=== PATIENT | female | born 1970 | race Caucasian/White ===

== ENCOUNTER 2019-10-24 15:17 | Emergency (ER) | payer MEDICAID ==
[~2019-10-24] VITALS: Ht 152.4 cm; Wt 78.5 kg
[2019-10-24 15:25] VITALS: BP 152/79
--- NOTE | 2019-10-24 15:34 | NUR ---
PT AMB TO BED 3 WITH STEADY GAIT
--- NOTE | 2019-10-24 15:59 | NUR ---
49 Y/O F C/O RIGHT FLANK PAIN 10/ THAT RADIATES TO THE BACK X1 DAY. PT DENIES INJURY TO THE AREA. NO N/V FEVER. UPPER RT QUADRANT PAIN TO TOUCH. PT POSITIONED FOR COMFORT, VS STABLE. BED LOWERED, SIDE RAIL X1 IN PLACE. PT AMBULATED WITHOUT DIFFICULTY TO PROVIDE URINE SAMPLE. LAKESHA
--- NOTE | 2019-10-24 16:03 | NUR ---
EMT AT BEDSIDE PERFORMING EKG.
--- NOTE | 2019-10-24 17:11 | NUR ---
X-RAY TECH AT BEDSIDE PERFORMING ORDERED TEST.
[2019-10-24 17:56] LABS: BASOPHILS % (AUTO) 0.3 % (0.0-2.0); EOSINOPHILS # (AUTO) 0.2 K/uL (0-0.4); HEMATOCRIT 38.3 % (36-48); HEMOGLOBIN 12.6 g/dL (12.0-16.0); LYMPHOCYTES # (AUTO) 2.2 K/uL (2.5-16.5); LYMPHOCYTES % (AUTO) 29.8 % (20.5-51.1); MEAN CORPUSCULAR HEMOGLOBIN 29 pg (27-31); MEAN CORPUSCULAR HGB CONC 33 g/dL (33-37); MEAN CORPUSCULAR VOLUME 86.9 fL (80-94); MONOCYTES # (AUTO) 0.4 K/uL (0.8-1.0); MONOCYTES % (AUTO) 5.6 % (1.7-9.3); NEUTROPHILS # (AUTO) 4.5 K/uL (1.8-7.7); NEUTROPHILS % (AUTO) 61.3 % (42.2-75.2); PLATELET COUNT (AUTO) 299 K/uL (140-450); RED CELL DISTRIBUTION WIDTH 13.1 % (11.6-13.7); WHITE BLOOD COUNT (AUTO) 7.3 K/uL (4.8-10.8)
--- NOTE | 2019-10-24 18:23 | NUR ---
PT RESTING COMFORTABLY, VS STABLE, OXYGEN LEVEL 99% ON NC 2L. DAUGHTER AT BEDSIDE. INFORMED PT WAITING FOR TEST RESULTS TO RETURN.
[2019-10-24 18:39] LABS: PROTHROMBIN TIME 9.5 secs (10.8-13.4)
[2019-10-24 18:42] LABS: ALBUMIN 3.5 g/dL (3.4-5.0); ANION GAP 13.2 (8-16); CARBON DIOXIDE 28.5 mmol/L (21-32); CREATININE 0.7 mg/dL (0.6-1.3); POTASSIUM 3.7 mmol/L (3.5-5.1); TOTAL BILIRUBIN 0.2 mg/dL (0.0-1.0)
[2019-10-24 18:48] LABS: D-DIMER < 100 ng/ml (0-400)
--- NOTE | 2019-10-24 19:22 | NUR ---
REPORT GIVE TO ALMA RUTLEDGE FOR CHANGE OF SHIFT.
--- NOTE | 2019-10-24 19:23 | NUR ---
RECEIVED REPORT FROM ALMA GAGE. [facility] AT THIS TIME.
--- NOTE | 2019-10-24 20:05 | NUR ---
PT SEATED UPRIGHT IN BED. O2 SAT AT 100% ON 2L NC. RESPIRATIONS EVEN AND UNLABORED. WILL CONTINUE TO MONITOR.
[2019-10-24 20:28] VITALS: BP 160/86
--- NOTE | 2019-10-24 21:10 | NUR ---
DR. NEAL AT BEDSIDE EXPLAINING TEST RESULTS
--- NOTE | 2019-10-24 21:25 | NUR ---
Patient discharged with v/s stable. Written and verbal after care instructions given and explained. Patient alert, oriented and verbalized understanding of instructions. Ambulatory with steady gait. All questions addressed prior to discharge. ID band removed. Patient advised to follow up with PMD. Rx of NAPROSYN AND LIDODERM given. Patient educated on indication of medication including possible reaction and side effects. Opportunity to ask questions provided and answered.
== END 2019-10-24 21:25 | disposition home or self-care (01) ==
LOC: MED 15:17
DX: R07.81 Pleurodynia (principal); R05 Cough; F17.200 Nicotine dependence, unspecified, uncomplicated; R11.2 Nausea with vomiting, unspecified; Z71.6 Tobacco abuse counseling
CPT/HCPCS: 36415; 71045; 71275; 80053; 81002; 81025; 82550; 83880; 84484; 85025; 85379; 85610; 85730; 86886; 86900; 86901; 93005; 99284; Q0092; Q9967

== ENCOUNTER 2019-11-12 15:46 | Emergency (ER) | payer MEDICAID ==
[~2019-11-12] VITALS: Ht 152.4 cm; Wt 73.9 kg
[2019-11-12 15:52] VITALS: BP 126/88
[2019-11-12] MEDS ORDERED: ALBUTEROL SULFATE/IPRATROPIU 3 ML SOL IH ONE ×2 (16:25→17:55)
[2019-11-12 18:11] VITALS: BP 132/85
== END 2019-11-12 18:12 | disposition home or self-care (01) ==
LOC: MED 15:46
DX: B34.9 Viral infection, unspecified (principal); I10 Essential (primary) hypertension; F17.210 Nicotine dependence, cigarettes, uncomplicated; Z71.6 Tobacco abuse counseling
CPT/HCPCS: 71045; 87804; 94640; 99284; J7620; Q0092